=== PATIENT | male | born 1985 | race Caucasian/White ===

== ENCOUNTER → 2024-02-08 | Outpatient (CLI) | payer OTHER, SELFPAY ==
--- NOTE | 2024-02-08 14:27 | XR_ITS ---
Examination: PA lateral chest 2 views TECHNIQUE: Upright PA lateral chest 2 views Exam date and time: February 08, 2024 1447 hours INDICATIONS: Coughing congestion beginning 2 weeks ago. FINDINGS: Subtle opacity left base Right lung clear Normal heart size IMPRESSION: Suspicious for early left base pneumonia
[2024-02-08 16:36] LABS: Basophils # (Auto) 0.1 Thou/mm3 (0.0-0.2); Basophils % (Auto) 1 % (0-2.5); Eosinophils # (Auto) 0.5 Thou/mm3 (0.0-0.5); Eosinophils % (Auto) 6 % (0-10); Hematocrit 41.8 % (41.0-53.0); Hemoglobin 14.6 g/dL (13.5-16.0); Immature Granulocytes % (Auto) 1 % (0-0); Immature Granulocytes Auto 0.09 Thou/mm3 (0.00-0.00); Lymphocytes # (Auto) 2.1 Thou/mm3 (1.0-4.8); Lymphocytes % (Auto) 26 % (10-50); Mean Corpuscular HGB Conc 34.9 g/dl (31.0-37.0); Mean Corpuscular Hemoglobin 32.1 pg (25.0-35.0); Mean Corpuscular Volume 92 fL (80-100); Monocytes # (Auto) 0.7 Thou/mm3 (0.0-0.8); Monocytes % (Auto) 9 % (0-12); Neutrophils # (Auto) 4.6 Thou/mm3 (1.8-7.7); Neutrophils % (Auto) 57 % (37-80); Nucleated Red Blood Cell % 0 /100 WBC (0); Platelet Count 301 Thou/mm3 (140-440); RDW Standard Deviation 41.7 fL (35.1-43.9); Red Blood Count 4.55 Miln/mm3 (4.50-5.90)
[2024-02-09 18:55] LABS: Mono Screen Negative (Negative)
== END | disposition home or self-care (01) ==
PROVIDERS: PCP Family Medicine; Referring Provider Physician Assistant; Visit Provider Radiology Diagnostic Radiology
DX: R05.9 Cough, unspecified (principal)
CPT/HCPCS: 36415; 71046; 85025; 86308

== ENCOUNTER → 2024-04-12 | Outpatient (CLI) | payer OTHER, SELFPAY ==
[2024-04-12 13:54] LABS: Thyroid Stimulating Hormone 2.25 uIU/mL (0.55-4.78)
[2024-04-12 13:58] LABS: T4 (Thyroxine) 10.5 mcg/dL (4.5-10.9)
== END | disposition home or self-care (01) ==
PROVIDERS: PCP Family Medicine; Referring Provider Family Medicine; Visit Provider Family Medicine
DX: E03.9 Hypothyroidism, unspecified (principal)
CPT/HCPCS: 36415; 84436; 84443

== ENCOUNTER → 2024-10-17 | Outpatient (CLI) | payer OTHER, SELFPAY ==
[2024-10-17 13:20] LABS: Thyroid Stimulating Hormone 1.97 uIU/mL (0.55-4.78)
[2024-10-17 13:28] LABS: T4 (Thyroxine) 10.3 mcg/dL (4.5-10.9)
== END | disposition home or self-care (01) ==
LOC: COPL 12:20
PROVIDERS: PCP Family Medicine; Referring Provider Family Medicine; Visit Provider Family Medicine
DX: E03.9 Hypothyroidism, unspecified (principal)
CPT/HCPCS: 36415; 84436; 84443

== ENCOUNTER → 2024-11-06 | Outpatient (CLI) | payer OTHER, SELFPAY ==
[2024-11-06 15:26] LABS: % Variance 11 %; Count Side 1 54; Count Side 2 48; Motl CLS 1 20; Motl CLS 2 20; Sperm Count 51 Million (20-50)
[2024-11-06 15:27] LABS: % Variance Motility 0 %; Room Temperature 24 (20-27C (Area)); Sperm Motility 20 % (>=50)
== END | disposition home or self-care (01) ==
LOC: COPL 12:56
PROVIDERS: PCP Family Medicine; Referring Provider Family Medicine; Visit Provider Family Medicine
DX: Z01.89 Encounter for other specified special examinations (principal)
CPT/HCPCS: 89310

== ENCOUNTER → 2024-12-25 | Outpatient (BNVA) | payer OTHER, SELFPAY | END | disposition home or self-care (01) | PROVIDERS: PCP Family Medicine; Referring Provider Family Medicine; Visit Provider Student in an Organized Health Care Education/Training Program | DX: Z31.41 Encounter for fertility testing (principal) | CPT/HCPCS: 99202; 99212; G0463 ==

== ENCOUNTER → 2025-02-11 | Outpatient (CLI) | payer OTHER, SELFPAY ==
[2025-02-11 09:37] LABS: Basophils # (Auto) 0.0 Thou/mm3 (0.0-0.2); Basophils % (Auto) 1 % (0-2.5); Eosinophils # (Auto) 0.6 Thou/mm3 (0.0-0.5); Eosinophils % (Auto) 10 % (0-10); Hematocrit 42.4 % (41.0-53.0); Hemoglobin 13.7 g/dL (13.5-16.0); Immature Granulocytes Auto 0.02 Thou/mm3 (0.00-0.00); Lymphocytes # (Auto) 1.9 Thou/mm3 (1.0-4.8); Lymphocytes % (Auto) 32 % (10-50); Mean Corpuscular HGB Conc 32.3 g/dl (31.0-37.0); Mean Corpuscular Hemoglobin 30.1 pg (25.0-35.0); Mean Corpuscular Volume 93 fL (80-100); Monocytes # (Auto) 0.4 Thou/mm3 (0.0-0.8); Monocytes % (Auto) 7 % (0-12); Neutrophils # (Auto) 2.9 Thou/mm3 (1.8-7.7); Neutrophils % (Auto) 50 % (37-80); Nucleated Red Blood Cell # 0.00 Thou/mm3 (0.00-0.00); Nucleated Red Blood Cell % 0 /100 WBC (0); Platelet Count 161 Thou/mm3 (140-440); RDW Standard Deviation 44.7 fL (35.1-43.9); Red Blood Count 4.55 Miln/mm3 (4.50-5.90); White Blood Count 5.8 Thou/mm3 (3.8-10.6)
[2025-02-11 09:45] LABS: Glucose Estimated Average 103 mg/dL (80-131); Hemoglobin A1C 5.2 % Hgb (4.8-6.0)
[2025-02-11 09:59] LABS: T4 (Thyroxine) 8.5 mcg/dL (4.5-10.9)
[2025-02-11 10:01] LABS: Follicle Stimulating Hormone 4.69 mIU/mL (See Note)
[2025-02-11 10:02] LABS: Alanine Aminotransferase 33 U/L (10-49); Albumin, Serum 4.4 gm/dL (3.5-5.0); Albumin/Globulin Ratio 1.6 (1.2-2.2); Alkaline Phosphatase 31 U/L (46-116); Anion Gap 9 (7-16); Aspartate Amino Transferase 25 U/L (0-34); BUN/Creatinine Ratio 18 Ratio (12-20); Bilirubin,Total 0.7 mg/dL (0.3-1.2); Blood Urea Nitrogen 18 mg/dL (9-23); Calcium 10.0 mg/dL (8.3-10.6); Calcium (Corrected) 10.0 mg/dL (8.5-10.1); Carbon Dioxide 29.4 mMol/L (20.0-31.0); Cardiac Risk Estimate 5.1 RATIO (4.0-6.7); Chloride 105 mMol/L (98-107); Cholesterol 284 mg/dL (132-200); Creatinine (Component) 1.0 mg/dL (0.6-1.3); Globulin 2.8 gm/dL (2.3-3.5); Glucose 88 mg/dL (74-106); HDL Cholesterol 56 mg/dL (40-60); LDL Cholesterol,Calculated 200 mg/dL (0-130); Osmolality,Calculated 285 (275-295); Potassium 4.6 mMol/L (3.4-5.1); Sodium 143 mMol/L (136-145); Thyroid Stimulating Hormone 5.18 uIU/mL (0.55-4.78); Total Protein 7.2 gm/dL (5.7-8.2); Triglycerides 142 mg/dL (30-150); eGFR > 60 See Note
[2025-02-18 06:26] LABS: Estradiol, Ultrasensitive* 18 pg/mL (< OR = 29); Luteinizing Hormone* 4.0 mIU/mL (1.5-9.3); Prolactin* 10.0 ng/mL (2.0-18.0); Testosterone,Total* 554 ng/dL (250-1100)
== END | disposition home or self-care (01) ==
LOC: COPL 08:36
PROVIDERS: PCP Family Medicine; Referring Provider Student in an Organized Health Care Education/Training Program; Visit Provider Student in an Organized Health Care Education/Training Program
DX: E03.9 Hypothyroidism, unspecified (principal); G47.30 Sleep apnea, unspecified; R79.9 Abnormal finding of blood chemistry, unspecified; E29.1 Testicular hypofunction
CPT/HCPCS: 36415; 80053; 80061; 82670; 83001; 83002; 83036; 84146; 84403; 84436; 84443; 85025